=== PATIENT | male | born 1945 | race Caucasian/White ===

== ENCOUNTER → 2020-04-07 14:50 | Outpatient (CLI) | payer MEDICARE, SELFPAY ==
[2020-04-07 17:58] LABS: Alanine Aminotransferase 19 U/L (12-78); Albumin Level 4.1 g/dl (3.5-5.0); Albumin/Globulin Ratio 1.6 (1.1-1.8); Alkaline Phosphatase 58 U/L (38-126); Anion Gap 10.3 mEq/L (5-15); Aspartate Amino Transferase 32 U/L (17-59); Bilirubin,Total 0.6 mg/dl (0.2-1.3); Blood Urea Nitrogen 18 mg/dl (9-20); Calcium 9.4 mg/dl (8.4-10.2); Carbon Dioxide 29 mmol/L (22.0-30.0); Chloride 103 mmol/L (98-107); Chol/HDL Ratio 3.1 (1-3.5); Cholesterol 162 mg/dl (140-200); Estimated Glomerular Filt Rate 111 ml/min (>60); GFR (African American) 134 ML/MIN (>60); Globulin 2.5 g/dL (1.3-3.2); Glucose 119 mg/dl (74-100); HDL Cholesterol 52 mg/dl (40-60); Potassium 4.3 mmoL/L (3.5-5.1); Sodium 138 mmol/L (136-145); Total Protein,Serum 6.6 g/dl (6.3-8.2); Triglycerides 114 mg/dl (30-150); VLDL Cholesterol 23 mg/dL (0-40)
[2020-04-07 18:09] LABS: Direct LDL Cholesterol 94.46 mg/dL (100-129)
[2020-04-07 18:15] LABS: T4 (Thyroxine) 8.5 ug/dl (5.53-11.0)
[2020-04-07 18:28] LABS: Thyroid Stimulating Hormone 1.45 uIU/mL (0.465-4.68)
[2020-04-07 18:46] LABS: Vitamin B12 999 pg/mL (239-931)
== END ==
PROVIDERS: Visit Provider Family Medicine
DX: E78.5 Hyperlipidemia, unspecified (principal); M15.4 Erosive (osteo)arthritis; F41.9 Anxiety disorder, unspecified
CPT/HCPCS: 80053; 80061; 82607; 84436; 84443

== ENCOUNTER → 2020-04-19 12:26 | Outpatient (CLI) | payer MEDICARE, SELFPAY ==
--- NOTE | 2020-04-19 12:34 | XR_ITS ---
PROCEDURE: XR FINGER LT MIN 2V CLINICAL INDICATION: eval of osteomyelitis Pain COMPARISON: No exams were available for comparison FINDINGS: No fracture or dislocation. No lytic or blastic change. There is normal mineralization. There are mild osteoarthritic changes of the PIP and DIP is. Other findings:No bony destructive process IMPRESSION: No acute finding Dictated by: Pj Asencio MD 04/19/2020 18:30 Pj Asencio MD in [place] 04/19/2020 18:30
[2020-04-19 13:09] LABS: Basophils % 0.3 % (0.1-2.0); Eosinophils # 0.1 K/mm3 (0.0-0.4); Eosinophils % 1.2 % (0.1-12.0); Hematocrit 46.1 % (42.0-52.0); Hemoglobin 15.3 g/dL (14.1-18.0); Lymphocytes # 1.6 K/mm3 (0.7-4.5); Lymphocytes % 24.9 % (10-50); Mean Corpuscular HGB Conc 33.1 g/dL (31.8-35.4); Mean Corpuscular Hemoglobin 31.4 pg (27.0-31.2); Mean Platelet Volume 8.4 fl (7.4-10.4); Monocytes # 0.4 K/mm3 (0.1-1.0); Monocytes % 5.9 % (1.7-9.3); Neutrophils # 4.3 K/mm3 (1.8-7.8); Neutrophils % 67.6 % (37.0-80.0); Platelet Count 212 K/mm3 (142-424); Red Blood Count 4.86 M/mm3 (4.60-6.20); White Blood Count 6.3 K/mm3 (4.8-10.8)
[2020-04-19 13:54] LABS: Hemoglobin A1C 6.2 % (4.0-6.0)
[2020-04-19 16:04] LABS: Folate > 20.00 ng/mL
== END ==
PROVIDERS: Visit Provider Nurse Practitioner Family
DX: L03.012 Cellulitis of left finger (principal); R20.0 Anesthesia of skin; R20.2 Paresthesia of skin; R73.09 Other abnormal glucose
CPT/HCPCS: 36415; 73140; 82746; 83036; 85025

== ENCOUNTER → 2020-05-02 10:04 | Outpatient (CLI) | payer MEDICARE, SELFPAY ==
--- NOTE | 2020-05-02 10:05 | MR_ITS ---
PROCEDURE: MR HEAD/BRAIN WO CON CLINICAL INDICATION: NUMBNESS AND TINGLING IN BILATERAL ARMS, HANDS, AND LEGS. STIFFNESS IN NECK. X2YRS. COMPARISON: No exams were available for comparison TECHNIQUE: Routine multiplanar multi echo sequences are performed without gadolinium enhancement. FINDINGS: No midline shift, mass effect, intracranial hemorrhage, or hydrocephalus is evident. No evidence of acute infarction. There are scattered periventricular and subcortical T2 white matter hyperintensities which are nonspecific. No evidence of restricted diffusion. The pituitary, optic chiasm, corpus callosum, and craniocervical junction have an unremarkable appearance. There is a partial empty sella as a normal variant. No mastoid effusion or sinus air-fluid level. IMPRESSION: 1. No acute intracranial findings. 2. Scattered periventricular and subcortical T2 white matter hyperintensities. Differential diagnosis would include ischemic gliotic change from microvascular disease, migraine headache, or demyelinating process. Dictated by: Pj Asencio MD 05/03/2020 10:55 Pj Asencio MD in [place] 05/03/2020 10:55
--- NOTE | 2020-05-02 10:05 | MR_ITS ---
PROCEDURE: MR CERVICAL SPINE WO CON CLINICAL INDICATION: eval for cord compression NUMBNESS AND TINGLING IN BILATERAL ARMS, HANDS, AND LEGS. STIFFNESS IN NECK. X2YRS. NO PRIOR.. COMPARISON: No exams were available for comparison TECHNIQUE: Standard multiplanar multiecho sequences are performed without contrast. 3-D MIP and myelographic images are also rendered and reviewed FINDINGS: There is straightening of the cervical lordosis. This is nonspecific and could be due to patient positioning or muscle spasm. The craniocervical junction has an unremarkable appearance. C2-C3: Mild left foraminal narrowing. There is mild hypertrophy of the lamina at this level with borderline narrowing of the canal. The lamina abuts the posterior aspect of the cord without cord displacement C3-C4: Minimal prominence of the posterior longitudinal ligament. C4-C5: 3 mm anterolisthesis of C4 on C5 with minimal central disc protrusion versus prominent posterior longitudinal ligament with borderline narrowing of the canal with minimal flattening of the cord anteriorly. C5-C6: The disc space appears fused with anterior osteophytes. There is narrowing of the canal at this level at 10 mm with very minimal flattening of the cord anteriorly C6-C7: Minimal bulging disc with borderline narrowing of the canal. C7-T1: Unremarkable. IMPRESSION: 1. C2-C3: Mild left foraminal narrowing. There is mild hypertrophy of the lamina at this level with borderline narrowing of the canal. The lamina abuts the posterior aspect of the cord without cord displacement 2. C3-C4: Minimal prominence of the posterior longitudinal ligament. 3. C4-C5: 3 mm anterolisthesis of C4 on C5 with minimal central disc protrusion versus prominent posterior longitudinal ligament with borderline narrowing of the canal with minimal flattening of the cord anteriorly. 4. C5-C6: The disc space appears fused with anterior osteophytes. There is narrowing of the canal at this level at 10 mm with very minimal flattening of the cord anteriorly 5. C6-C7: Minimal bulging disc with borderline narrowing of the canal. 6. No extruded herniated disc evident Dictated by: Pj Asencio MD 05/03/2020 10:45 Pj Asencio MD in [place] 05/03/2020 10:45
== END ==
PROVIDERS: PCP Family Medicine; Visit Provider Specialist
DX: R20.0 Anesthesia of skin (principal); R20.2 Paresthesia of skin
CPT/HCPCS: 70551; 72141; 76376

== ENCOUNTER → 2020-12-09 14:26 | Outpatient (CLI) | payer MEDICARE, SELFPAY ==
[2020-12-09 16:37] LABS: Thyroid Stimulating Hormone 0.99 uIU/mL (0.465-4.68)
[2020-12-12 11:26] LABS: Alanine Aminotransferase 17 U/L (12-78); Albumin Level 4.2 g/dl (3.5-5.0); Albumin/Globulin Ratio 1.5 (1.1-1.8); Alkaline Phosphatase 58 U/L (38-126); Anion Gap 11.4 mEq/L (5-15); Aspartate Amino Transferase 24 U/L (17-59); Bilirubin,Total 0.6 mg/dl (0.2-1.3); Blood Urea Nitrogen 14 mg/dl (9-20); Calcium 9.5 mg/dl (8.4-10.2); Carbon Dioxide 29 mmol/L (22.0-30.0); Chloride 103 mmol/L (98-107); Estimated Glomerular Filt Rate 95 ml/min (>60); GFR (African American) 115 ML/MIN (>60); Globulin 2.8 g/dL (1.3-3.2); Glucose 114 mg/dl (74-100); Potassium 4.4 mmoL/L (3.5-5.1); Sodium 139 mmol/L (136-145)
[2020-12-12 11:56] LABS: Prostate Specific Ag Screen 2.1 ng/ml (0.0-4.0)
== END ==
PROVIDERS: Visit Provider Family Medicine
DX: B35.1 Tinea unguium (principal); E78.5 Hyperlipidemia, unspecified; I10 Essential (primary) hypertension; R00.9 Unspecified abnormalities of heart beat; Z12.5 Encounter for screening for malignant neoplasm of prostate
CPT/HCPCS: 80053; 84436; 84443; G0103

== ENCOUNTER → 2021-02-14 14:51 | Outpatient (CLI) | payer MEDICARE, SELFPAY ==
--- NOTE | 2021-02-14 14:58 | CA_ITS ---
APPROVED REPORT EXAM: Comprehensive 2D, Doppler, and color-flow Echocardiogram Creative Consultant: Hattie Shaw RVT Ht: 6 ft 1 in Wt: 231lbs BSA: 2.29 BP: 116/61 mmHg Indications: PRE-OP,ABN EKG,HTN,DM,HLD 2D Dimensions LVOT 2.02 cm (M/F) 1.5-2.5 LA Volume 84.10 mL LA Volume Index 36.88 mL/m2 (M/F) 16-34 M-Mode Dimensions RVDd 2.73 cm (0.9-2.6) LA Diam 3.49 cm (1.9-4.0) LVDd 5.16 cm (3.5-5.7) Ao Diam 2.92 cm (2.0-3.7) LVDs 3.26 cm (3.5-5.7) IVSd 1.06 cm (0.6-1.1) PWd 0.65 cm (0.6-1.1) EF (Teich) 66.40% FS 36.80% EDV (Teich) 127.20 mL TAPSE 2.47 (<1.7) ESV (Teich) 42.80 mL LV Diastology E Decel Time 173.00 (160-240 msec) E/A Ratio 1.3 MED E' 5.30 (< 7 cm/sec) E'/MED E' Ratio 17.83 (>14) LAT E' 9.90 (<10 cm/sec) E/LAT E' Ratio 9.55 (>14) Aortic Valve AI PHT 755.00 ms AO Peak GR. 6.10 mmHg Mitral Valve MV E Max Kevin. 95.00 (40-130 cm/s) MV A Velocity 71.00 (40-130 cm/s) E/A Ratio 1.33 MV Decel. Time 173.00 (160-240 ms) MV PHT 51.00 ms Pulmonary Valve PV Peak Velocity 58.00 (50-150 cm/s) Tricuspid Valve TR P. Velocity 147.00 cm/s RAP Estimate 10.00 mmHg RVSP 18.60 mmHg Left Ventricle Left atrium is mildly enlarged, left ventricle is normal size, mild concentric left ventricular hypertrophy, visually estimated ejection fraction 50% with no regional wall motion abnormality, grade 1 diastolic dysfunction seen without tissue Doppler evidence of raise left atrial pressure. Right Ventricle Right atrium and right ventricle are mildly enlarged with normal contractility. Aortic Valve Aortic valve is minimally thickened and fibrosed, there is no aortic stenosis, there is mild aortic insufficiency. Mitral Valve Mitral valve is minimally thickened, there is mild mitral regurgitation. Tricuspid Valve Tricuspid grossly normal, there is mild tricuspid regurgitation, tricuspid regurgitation jet velocity is inadequate for calculation of the right ventricular systolic pressure. Pulmonic Valve Pulmonic valve is poorly visualized. Great Vessels Aortic root is normal size. Pericardium No significant pericardial effusion noted. Conclusion 1. Mild biatrial enlargement, normal left ventricular size, visually estimated ejection fraction 50% with no regional wall motion abnormality, grade 1 diastolic dysfunction seen without tissue Doppler evidence of raise left atrial pressure. 2. Thickened and calcified aortic valve with mild aortic insufficiency. 3. Mild mitral and tricuspid regurgitation. 4. No significant pericardial effusion noted. Electronically signed by : Rolo Dodson, 02/14/2021 17:59:40
== END ==
PROVIDERS: PCP Family Medicine; Visit Provider Family Medicine
DX: Z01.818 Encounter for other preprocedural examination (principal)
CPT/HCPCS: 93306

== ENCOUNTER → 2021-04-10 12:13 | Outpatient (CLI) | payer MEDICARE, SELFPAY | PROVIDERS: PCP Family Medicine; Visit Provider Nurse Practitioner Family | DX: E78.5 Hyperlipidemia, unspecified (principal); I10 Essential (primary) hypertension; I49.1 Atrial premature depolarization; I49.9 Cardiac arrhythmia, unspecified; R94.31 Abnormal electrocardiogram [ECG] [EKG] | CPT/HCPCS: 93270 ==

== ENCOUNTER → 2021-04-19 13:37 | Outpatient (CLI) | payer MEDICARE, SELFPAY | PROVIDERS: Visit Provider Nurse Practitioner Family | DX: R43.2 Parageusia (principal); Z20.822 Contact with and (suspected) exposure to COVID-19; U07.1 COVID-19 | CPT/HCPCS: C9803; U0003; U0005 ==

== ENCOUNTER → 2021-05-31 12:08 | Outpatient (CLI) | payer MEDICARE, SELFPAY ==
--- NOTE | 2021-05-31 | CA_ITS ---
APPROVED REPORT Exam: Pharmacologic Technologist: JARON HUERTA, Ht: 6 ft 1 in Wt: 227 lbs BSA: 2.27 m2 HR: 67 bpm BP: 105/63 mmHg Rhythm: UNDETERMINED RHYTHM-PROBABLY WANDERING ATRIAL PACEMAKER Indications: CP Medical History Medical History: Hyperlipidemia, Diabetes Medications: Metoprolol,,,,, Ezetimbe,,,,, MetoFORMIN,,,,, Terbinafine,,,,, SucraITASE,,,,, Allergies: [id number] REDUCTASE Cardiac Risk Factors: Hyperlipidemia, Diabetes (insulin) Stress Test Details Test: LEXISCAN HR Resting HR: 80 bpm Max Heart Rate (APMHR): 147.899427 bpm Max HR Achieved: 109 bpm Target HR (85% APMHR): 124.224604 bpm % of APMHR: 74.15 Recovery HR: 99 bpm BP Resting BP: 105/63 mmHg Max BP: 118/74 mmHg Recovery BP: 118.0/74.0 mmHg ECG Resting ECG: UNDETERMINED RHYTHM-PROBABLY WANDERING ATRIAL PACEMAKER Clinical Exercise duration: 04:21 min Highest Stage Achieved: Stress ECG Conclusion PT HAD VERY BRIEF SOA. NO CP. IRREGULAR NARROW COMPLEX RHYTHM; PROBABLY WANDERING PACEMAKER. NO SIGNIFICANT ST-T CHANGES. UNREMARKABLE LEXISCAN STRESS. MYOVIEW IMAGES REPORTED SEPARATELY. Electronically signed by : Rolo Dodson MD 06/01/2021 14:50:27
--- NOTE | 2021-05-31 12:09 | NM_ITS ---
APPROVED REPORT Exam: Nuclear Stress Test Indication: HTN, D.M., HYPERLIPIDEMIA, ABN EKG Patient Location: Outpatient Stress Tech: Lexy Harmon [place] Tech:Janell Mendoza, ARRT, RT (R)(N) Ht: 6 ft 1 in Wt: 225 lbs HR: 67 bpm BP: 105/63 mmHg BSA: 2.26 m2 BMI: 29.6 History: HTN, D.M., HYPERLIPIDEMIA, ABN EKG Procedure: Patient received a 0.4 mg of intravenous Lexiscan, resting heart rate 67 bpm, resting blood pressure 105/63 mmHg, with Lexiscan maximum heart rate achived was 99 bpm which is Less than 85 % of the maximum predicted heart rate and blood pressure was 115/56 mmHg. With Lexiscan, patient denied any complaint of chest pain. Electrocardiogram Resting electrocardiogram shows sinus rhythm with Lexiscan there is less than 1.[address] segment depression noted from the baseline EKG. Cardiac Stress and Resting SPECT Images: Cardiac Stress and Resting SPECT images were obtained using technetium 99m Myoview 30.1 mCi stress and 10.01 mCi at rest. Gated SPECT in prone images were not obtained due to technical reasons. Cardiac stress and resting SPECT images show uniform myocardial activity without segmental perfusion abnormality. Conclusion: 1. The EKG portion of the Lexiscan is nondiagnostic. 2. No scintigraphic evidence of reversible ischemia seen. 3. Gated SPECT and prone images were not performed. Electronically signed by : Rolo Dodson MD 06/01/2021 14:54:17
--- NOTE | 2021-05-31 14:18 | HMH.ITSHM ---
Current Home Medications as stated by this patient Shane Jacinto or patient financial representative. []TERBINAFINE SUCRALFATE METOPROLOL METFORMIN EZETIMIBE
== END ==
PROVIDERS: PCP Family Medicine; Visit Provider Nurse Practitioner Family
DX: E78.2 Mixed hyperlipidemia (principal); I10 Essential (primary) hypertension; I44.2 Atrioventricular block, complete; I48.91 Unspecified atrial fibrillation; I49.1 Atrial premature depolarization; I49.5 Sick sinus syndrome; R94.31 Abnormal electrocardiogram [ECG] [EKG]
CPT/HCPCS: 78452; 93017; A9502; J2785